=== PATIENT | female | born 2000 | race African-American/Black ===

== ENCOUNTER 2019-10-20 19:58 | Emergency (ER) | payer OTHER ==
[~2019-10-20] VITALS: Ht 165.1 cm; Wt 92.3 kg
[2019-10-21] MEDS ORDERED: IBUPROFEN 600 MG TABLET PO ONE (00:15)
[2019-10-21 00:46] VITALS: BP 156/90
== END 2019-10-21 00:48 | disposition home or self-care (01) ==
LOC: EMS 19:59
DX: S63.682A Other sprain of left thumb, initial encounter (principal); X58.XXXA Exposure to other specified factors, initial encounter; Y93.89 Activity, other specified; Y92.89 Other specified places as the place of occurrence of the external cause; Y99.8 Other external cause status
CPT/HCPCS: 29280